=== PATIENT | female | born 1945 | race Asian ===

== ENCOUNTER 2024-06-01 16:35 | Emergency (ER) | payer MEDICARE, SELFPAY ==
[2024-06-01 16:44] VITALS: BP 156/78; PULSE 61; RESP 16; TEMP 36.8; O2SAT 96; BMI 29.1
[2024-06-01 16:53] LABS: Appearance Urine Clear (Clear); Bilirubin Urine Negative (Negative); Blood Urine Negative (Negative); Color Urine Yellow (Yellow); Glucose Urine Negative (Negative); Ketones Urine Negative (Negative); Leukocyte Esterase Urine Negative (Negative); Nitrite Urine Negative (Negative); Protein Urine Negative (Negative)
[2024-06-01 17:04] LABS: RBC Urine 0-2 (0-2); WBC Urine 0-2 (0-5)
[2024-06-01 17:05] LABS: Squamous Epithelial Cell Urine Few (None-Few)
[2024-06-01 17:52] LABS: Basophils Absolute Auto 0.04 K/uL (0.00-0.30); Basophils Percent Auto 0.4 % (0.0-3.0); Eosinophils Absolute Auto 0.21 K/uL (0.00-0.50); Eosinophils Percent Auto 2.2 % (0.0-7.0); Hematocrit 43.1 % (33.0-51.0); Hemoglobin* 14.5 gm/dL (12.0-16.0); Immature Granulocytes Abs Auto 0.02 K/uL (0.00-0.30); Immature Granulocytes Pct Auto 0.2 %; Lymphocytes Absolute Auto 2.33 K/uL (0.90-2.90); Lymphocytes Percent Auto 24.8 % (20-44); Mean Corpuscular HGB Conc 34 gm/dL (32-36); Mean Corpuscular Hemoglobin 32 pg (26-34); Mean Corpuscular Volume 95 fL (80-100); Monocytes Percent Auto 4.5 % (0.0-11.0); Neutrophils Absolute Auto 6.39 K/uL (1.7-7.0); Neutrophils Percent Auto 67.9 % (42.0-72.0); Platelet Count* 232 K/uL (140-440); Red Blood Count 4.56 m/uL (4.00-5.20); White Blood Count* 9.41 K/uL (4.50-11.00)
[2024-06-01 17:54] LABS: Slide Review Reflex No
[2024-06-01 18:12] LABS: Chloride* 91 mmol/L (96-114); Potassium* 3.4 mmol/L (3.6-5.1); Sodium* 133 mmol/L (135-149)
[2024-06-01 18:15] LABS: Anion Gap 8 mEq/L (7-15); Blood Urea Nitrogen* 18 mg/dL (7-30); Calcium* 9.9 mg/dL (8.4-10.6); Carbon Dioxide* 34 mmol/L (20-32); Est. Creatinine Clearance* 43.16; Estimated Glomerular Filt Rate 58 ml/min; Glucose* 169 mg/dL (60-115)
[2024-06-01 18:48] VITALS: BP 137/71; PULSE 60; RESP 16
--- NOTE | 2024-06-01 21:48 | ED.GENADULT ---
HPI - General Adult General Date Seen: 06/01/24 Chief complaint: Urogenital Problems, Female Stated complaint: auditory hallucinations after head injury Time Seen by Provider: 06/01/24 16:41 Source: patient Mode of arrival: ambulatory Limitations: no limitations History of Present Illness HPI narrative: The patient is a 79-year-old female presents with her daughter, her daughter is able to touch her present for her. She is seeing some auditory hallucinations according to her daughter she is smelling or hearing min which are not in the room. This is been going on for quite some time initially I thought it was only for a few days but her daughter said this is been going on for months. They do argue little bit about this, she lives with her daughter who is brought her in, there is no history of dysuria frequency, although arm daughter thinks she may have a UTI. She does take chlorthalidone, for her hypertension, she has no fevers or chills no history of falls although she did have a fall in the past, an MRI is CT scan were done which were clearing this. When I talked to the patient through the daughter, she does say that she has thinks there is min in the room but understands that this sounds crazy. Related Data Previous Rx's ?Medication ?Instructions ?Recorded quetiapine 25 mg tablet (Seroquel) 25 mg PO QHS #30 tabs 06/01/24 Allergies Allergy/AdvReac Type Severity Reaction Status Date / Time No Known Drug Allergies Allergy Verified 06/01/24 16:46 Review of Systems Status of ROS: Reports: 10 or more systems reviewed and unremarkable except as noted in History and below PFSH PFSH Social History Smoking Status: Never smoker Do you use any of these nicotine containing products: None Second hand tobacco smoke exposure: No How often do you have a drink containing alcohol: never AUDIT-C Alcohol total score: 0 Non-prescribed substance use: denies use service: No Exam Narrative: Exam Narrative: Patient is in no apparent distress oriented x3 pupils equal round reactive to light there is no scleral icterus redness TMs are normal oropharynx normal neck is supple thyroid is normal midline palpable not enlarged or tender. Chest is clear bilaterally no wheezing crackles noted heart sounds no clicks murmurs or gallops her abdomen is soft there is no guarding no organomegaly she moves all extremities independently well no CVA tenderness is noted. Neurologically intact moving upper lower extremities, no gait disturbance, balance is intact. Const: Vital Signs, click to edit/add: Vital Signs - 24 hr 06/01/24 16:44 06/01/24 18:48 Temperature 98.2 F Pulse Rate [Left P ulse Oximeter] 61 60 Respiratory Rate 16 16 Blood Pressure [Ri ght Upper Arm] 156/78 H 137/71 Pulse Oximetry 96 Oxygen Delivery Me thod Room Air Course Course ED Course: I discussed with her and the daughter, this could be a lot of things but acutely early her daughter is comfortable taking her home and she is not a threat to herself. I think follow-up with primary care is for sure needed here. And I did discuss with the maybe some low-dose Seroquel at night may help this also. As seems to be occurring only at night. 25 mg of Seroquel as prescribed for consent risks benefits and side effects of this discussed. Vital Signs Vital signs: Initial Vital Signs Temperature 98.2 F 06/01/24 16:44 Temperature Source Temporal Artery Scan 06/01/24 16:44 Pulse Rate 61 06/01/24 16:44 Pulse Rhythm Regular 06/01/24 16:44 Pulse Strength 3+ Normal 06/01/24 16:44 Respiratory Rate 16 06/01/24 16:44 Blood Pressure 156/78 H 06/01/24 16:44 Blood Pressure Mean 104 06/01/24 16:44 Blood Pressure Position Sitting 06/01/24 16:44 Pulse Oximetry 96 06/01/24 16:44 Oxygen Delivery Method Room Air 06/01/24 16:44 Vital Signs Temperature 98.2 F 06/01/24 16:44 Pulse Rate 61 06/01/24 16:44 Respiratory Rate 16 06/01/24 16:44 Blood Pressure 156/78 H 06/01/24 16:44 Pulse Oximetry 96 06/01/24 16:44 Oxygen Delivery Method Room Air 06/01/24 16:44 Temperature 98.2 F 06/01/24 16:44 Pulse Rate 60 06/01/24 18:48 Respiratory Rate 16 06/01/24 18:48 Blood Pressure 137/71 06/01/24 18:48 Pulse Oximetry 96 06/01/24 16:44 Oxygen Delivery Method Room Air 06/01/24 16:44 Medical Decision Making MDM Narrative Medical decision making narrative: Differential diagnosis of the patient's acute psychosis is mental illness in the form of schizophrenia, bipolar disorder, metabolic derangement such as hyper/hypoglycemia or hypo/hyper natremia, [employer] disorder such as infection, drug use either listed her prescription, dementia, thyrotoxicosis, hepatic failure as well as other etiologies. Several items in the differential diagnosis have the potential to be life-threatening such as liver failure, hypo and hypernatremia. Lab Data Lab results reviewed: Yes I reviewed the patient's lab results Labs: Lab Results 06/01/24 06/01/24 Range/Units 16:47 17:30 WBC 9.41 (4.50-11.00) K/uL RBC 4.56 (4.00-5.20) m/uL Hgb 14.5 (12.0-16.0) gm/dL Hct 43.1 (33.0-51.0) % MCV 95 (80-100) fL MCH 32 (26-34) pg MCHC 34 (32-36) gm/dL RDW Coeff of Sarai 12.0 (11.5-15.5) % Plt Count 232 (140-440) K/uL Neut % (Auto) 67.9 (42.0-72.0) % Lymph % (Auto) 24.8 (20-44) % [place] % (Auto) 4.5 (0.0-11.0) % Eos % (Auto) 2.2 (0.0-7.0) % Baso % (Auto) 0.4 (0.0-3.0) % Neut # (Auto) 6.39 (1.7-7.0) K/uL Lymph # (Auto) 2.33 (0.90-2.90) K/uL [place] # (Auto) 0.40 (0.00-0.90) K/UL Eos # (Auto) 0.21 (0.00-0.50) K/uL Baso # (Auto) 0.04 (0.00-0.30) K/uL Abs Immat Gran (auto) 0.02 (0.00-0.30) K/uL Imm/Tot Granulo (auto) 0.2 % Sodium 133 L (135-149) mmol/L Potassium 3.4 L (3.6-5.1) mmol/L Chloride 91 L (96-114) mmol/L Carbon Dioxide 34 H (20-32) mmol/L Anion Gap 8 (7-15) mEq/L BUN 18 (7-30) mg/dL Creatinine 1.0 (0.5-1.5) mg/dL Estimated Creat Clear 43.16 Estimated GFR 58 ml/min Glucose 169 H (60-115) mg/dL Calcium 9.9 (8.4-10.6) mg/dL Urine Color Yellow (Yellow) Urine Appearance Clear (Clear) Urine pH 7.0 (5.0-8.5) Ur Specific [place] 1.020 (1.000-1.030) Urine Protein Negative (Negative) Urine Glucose (UA) Negative (Negative) Urine Ketones Negative (Negative) Urine Blood Negative (Negative) Urine Nitrite Negative (Negative) Urine Bilirubin Negative (Negative) Urine Urobilinogen 1.0 (0.2-1.0) Ur Leukocyte Esterase Negative (Negative) Urine RBC 0-2 (0-2) Urine WBC 0-2 (0-5) Ur Squamous Epith Cells Few (None-Few) Urine Bacteria None (None) Laboratory work is normal. Discharge Plan Discharge Clinical Impression: Auditory hallucination Patient Disposition: Home w/ Parent or Adult Condition: Stable Instructions: Nonpsychiatric Hallucinations (ED) Additional Instructions: I think it be reasonable let her go home, and then follow-up with primary care, trying a little bit of Quetipine at night time may also be helpful for the situation. I went over this with them, and they are in agreement. I do think that Dr. Ya would make a wonderful physician, I explained to them that the laboratory work all looked good. Prescriptions: New quetiapine [Seroquel] 25 mg tablet 25 mg PO QHS Qty: 30 2RF Follow Up/Referrals: Vicente Ya MD [Staff Physician] - Provider,Not a Local [Primary Care Provider] - Stand Alone Forms: [employer] Info Instructions
--- NOTE | 2024-06-03 11:09 | PC.SOCIAL ---
Social work consult/follow-up: hall worker reached out to pt's daughter, Tona, today via phone to follow-up with her regarding her mother's visit to the ED this past weekend and to see if she needed any resources for Memory Care Facilities. Pt's daughter, Tona, was very thankful for the call; however, stated that she was going to take her mother to see her PCP before making the decision on whether or not she needs to look for facilities. hall worker provided pt's daughter with the phone number for the [facility] incase she would like to inquire with questions in the future. Social work to follow-up as needed.
== END 2024-06-01 18:49 | disposition home or self-care (01) ==
PROVIDERS: Emergency Provider Family Medicine
DX: R44.0 Auditory hallucinations (principal)
CPT/HCPCS: 36415; 80048; 81001; 85025; 99283; 99284

== ENCOUNTER 2024-08-07 11:06 | Outpatient (CLI) | payer MEDICARE, SELFPAY | END 2024-08-07 11:07 | disposition home or self-care (01) | PROVIDERS: PCP Family Medicine; Visit Provider Family Medicine | DX: I10 Essential (primary) hypertension (principal); E78.2 Mixed hyperlipidemia | CPT/HCPCS: 80048; 83735 ==

== ENCOUNTER 2024-11-13 11:37 | Outpatient (CLI) | payer MEDICAID, SELFPAY | END 2024-11-13 11:38 | disposition home or self-care (01) | PROVIDERS: PCP Family Medicine; Visit Provider Family Medicine | DX: E78.2 Mixed hyperlipidemia (principal); I10 Essential (primary) hypertension | CPT/HCPCS: 80048; 80061 ==